=== PATIENT | male | born 1975 | race Caucasian/White ===

== ENCOUNTER 2020-07-11 08:45 | Emergency (ER) | payer OTHER ==
[~2020-07-11] VITALS: Ht 193 cm; Wt 107.9 kg
--- NOTE | 2020-07-11 09:12 | NUR ---
PT. HAS COVID AND IS ON A ZPACK. PT. STATES HE IS GETTING WORSE. ONSET OF SYMPTOMS WAS . PT. HAS CHEST WALL PAIN. Afebrile/Vss. Room air pox 97-100%
[2020-07-11] MEDS ORDERED: SODIUM CHLORIDE 0.9% 1,000ML IVBOLUS ONE (09:30)
[2020-07-11] MEDS ORDERED: SODIUM CHLORIDE FLUSH 10ML SYR IVF ONE (09:30)
[2020-07-11] MEDS ORDERED: DEXAMETHASONE 4 MG/ML, 1ML IVPush ONE (09:30)
[2020-07-11] MEDS ORDERED: DEXAMETHASONE 4 MG/ML, 1ML ONE (09:41)
[2020-07-11] MEDS ORDERED: OXYMETAZOLINE NASAL SPRAY 0.05%,30ML ONE (09:47)
[2020-07-11 09:49] LABS: BASOPHILS % (AUTO) 2 % (0-1); EOSINOPHILS % (AUTO) 0 % (1-7); LYMPHOCYTES % (AUTO) 33 % (22-44); MD NO; MEAN CORPUSCULAR HEMOGLOBIN 30.6 pg (27.5-34.5); MEAN CORPUSCULAR HGB CONC 35.1 g/dL (33.2-36.2); MEAN PLATELET VOLUME 8.2 fL (7.4-10.4); MONOCYTES % (AUTO) 13 % (2-9); NEUTROPHILS % (AUTO) 53 % (42-75); PLATELET COUNT 151 x10^3/uL (130-400); RED BLOOD COUNT 5.09 x10^6/uL (4.38-5.82); RED CELL DISTRIBUTION WIDTH 12.7 % (9.4-14.8)
[2020-07-11 10:02] LABS: ALANINE AMINOTRANSFERASE 78 U/L (12-78); ALBUMIN 3.7 g/dL (3.4-5.0); ANION GAP 7 mmol/L (5-15); CALCIUM 8.4 mg/dL (8.5-10.1); CHLORIDE 106 mmol/L (98-107)
[2020-07-11 10:04] LABS: ALKALINE PHOSPHATASE 81 U/L (45-117); BILIRUBIN,TOTAL 1.1 mg/dL (0.2-1.0); TOTAL PROTEIN 7.6 g/dL (6.4-8.2)
[2020-07-11] MEDS ORDERED: POTASSIUM CHLORIDE 20 MEQ TAB.ER.PRT PO ONE (11:00)
[2020-07-11] MEDS ORDERED: POTASSIUM CHLORIDE 20 MEQ TAB.ER.PRT ONE (11:01)
[2020-07-11] MEDS ORDERED: OMNIPAQUE 350 MG/ML, 75ML BOTTLE ONE (11:38)
--- NOTE | 2020-07-11 11:40 | NUR ---
to ct scan
[2020-07-11 12:36] VITALS: BP 149/72
== END 2020-07-11 12:38 | disposition home or self-care (01) ==
LOC: ED 10:06
DX: U07.1 COVID-19 (principal); J12.89 Other viral pneumonia
CPT/HCPCS: 36415; 71045; 71275; 80053; 84145; 85025; 85379; 93005; 96361; 96374; 99285; J1100; J7030; Q9967

== ENCOUNTER 2020-09-01 13:04 | Emergency (ER) | payer OTHER ==
[~2020-09-01] VITALS: Ht 190.5 cm; Wt 111.6 kg
[2020-09-01] MEDS ORDERED: LIDOCAINE-MPF 1%, 5ML ONE ×2 (14:12→14:23)
[2020-09-01] MEDS ORDERED: DIPH,PERTUSS(ACELL),TET VAC/PF 0.5 ML IM-VACC ONE ×2 (14:14→14:30)
[2020-09-01] MEDS ORDERED: NEOSPORIN OINT. PKT 1 PACKET ONE ×2 (14:15→15:53)
[2020-09-01] MEDS ORDERED: LIDOCAINE-MPF 1%, 5ML INFIL ONE (14:30)
--- NOTE | 2020-09-01 14:53 | NUR ---
Report from JIM Vasquez. [facility].
[2020-09-01 15:56] VITALS: BP 161/108
--- NOTE | 2020-09-01 15:58 | NUR ---
Wound was irrigated and stitched. Bacitracin and dressing applied. Pt agrees with and understands discharge plan and instructions.
== END 2020-09-01 16:06 | disposition home or self-care (01) ==
LOC: ED 15:50
DX: S61.012A Laceration without foreign body of left thumb without damage to nail, initial encounter (principal); W22.8XXA Striking against or struck by other objects, initial encounter; Y93.89 Activity, other specified; Y92.89 Other specified places as the place of occurrence of the external cause; Y99.8 Other external cause status
CPT/HCPCS: 12041; 90471; 90715; 99284